=== PATIENT | female | born 1940 | race Caucasian/White ===

== ENCOUNTER → 2017-09-03 | Outpatient (CLI) | payer OTHER, MEDICARE ==
[~2017-09-03] MED LIST: AMBIEN5 MG PO; ATIVAN0.5 MG PO; LEXAPRO5 MG PO; VYTORIN 10-101 EACH PO; WELLBUTRIN75 MG PO
== END | disposition home or self-care (01) ==
LOC: RAD 10:00
DX: R13.12 Dysphagia, oropharyngeal phase (principal); R63.3 Feeding difficulties
CPT/HCPCS: 74230; G8996 GN CH; G8997 GN CH; G8998 GN CH